=== PATIENT | male | born 1980 | race Caucasian/White ===

== ENCOUNTER 2022-06-13 18:34 | Emergency (ER) | payer SELFPAY ==
--- NOTE | 2022-06-13 18:45 | PC.NURSE ---
Went out to triage room to triage pt for decision. He advised he was getting into a crawl space and fell onto his left shoulder and was having pain and hard to move. Went to remove pt shirt and he advised he felt a pop and it was easier to move. Pt sat there for a few minutes and had full ROM of his arm and advised it just felt sore. Pt decided at this time he did not want to be seen.
[2022-06-13 18:54] VITALS: BP 0/0; PULSE 0; RESP 0; TEMP -17.7; TEMP 0; O2SAT 0
== END 2022-06-13 18:54 | disposition left against medical advice (07) ==
LOC: ER 18:43
PROVIDERS: Emergency Provider Emergency Medicine
DX: Z53.21 Procedure and treatment not carried out due to patient leaving prior to being seen by health care provider (principal)